=== PATIENT | male | born 1960 | race African-American/Black ===

== ENCOUNTER 2016-04-03 15:57 | Emergency (ER) | payer OTHER, MEDICARE ==
[~2016-04-03] VITALS: Ht 175.3 cm; Wt 70.3 kg
[2016-04-03 17:47] VITALS: BP 119/73
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
[2016-04-03] MEDS ORDERED: CYCL10TA2 PO (19:02)
[2016-04-03] MEDS ORDERED: NAPR500T8 PO (19:02)
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
== END 2016-04-03 19:06 | disposition home or self-care (01) ==
LOC: ER 16:05
DX: M25.512 Pain in left shoulder (principal); I10 Essential (primary) hypertension; Z98.890 Other specified postprocedural states; V49.88XA Car occupant (driver) (passenger) injured in other specified transport accidents, initial encounter; Y93.89 Activity, other specified; Y99.8 Other external cause status; Y92.488 Other paved roadways as the place of occurrence of the external cause
CPT/HCPCS: 73030; 99284